=== PATIENT | male | born 1965 | race Caucasian/White ===

== ENCOUNTER → 2017-02-01 01:50 | Emergency (ER) | payer OTHER | END | disposition left against medical advice (07) | LOC: CED 01:50 | DX: Z53.21 Procedure and treatment not carried out due to patient leaving prior to being seen by health care provider (principal) ==

== ENCOUNTER → 2017-02-02 | Outpatient (CLI) | payer OTHER ==
--- NOTE | ~2017-02-02 | US5 ---
[facility] A Service of [facility] & [facility] RADIOLOGY TEXT RESULTS PATIENT: RAMÍREZ ARITA LOCATION: [facility] : 69 UNIT #: [id number] AGE: [address]: CANDE JEFFERSON APRN SEX: M ORDER DR: [id number] [facility] [address] [place], [place] [address] [id number] O MR#: [id number] Acc #: [id number] NAME: RAMÍREZ ARITA : 1965 SEX: M STUDY DATE/TIME: 02/02/2017 9:33 UNIT: [facility] ROOM: STUDY DESCRIPTION: US Abdominal Complete Attending Physician: Cande Jefferson Np Referring Physician: Cande Jefferson Np Ordering Physician: Cande Jefferson Np Primary Care Physician: Cande Jefferson Np MEDICAL IMAGING REPORT This report is preliminary unless electronic signature is present EXAM Abdominal ultrasound complete 02/02/2017. HISTORY Abdominal pain for 2 years and discomfort. No known injury. FINDINGS The liver is homogeneous in echotexture and demonstrates no cystic or solid mass lesions. The intra and extrahepatic bile ducts are not dilated. The gallbladder is normal with no evidence of cholelithiasis, wall thickening or pericholecystic fluid. The common duct measures 2 mm. The pancreas and spleen are normal. The spleen measures 7.3 cm in greatest diameter. The visualized portions of the abdominal aorta and inferior vena cava are within normal limits. The kidneys are normal bilaterally. IMPRESSION Negative abdominal ultrasound. Dictated by... Chato Yeager M.D. THIS IS AN ELECTRONICALLY VERIFIED REPORT Chato Yeager M.D. at 02/03/2017 8:29 AM KRT/bhavani TD: 02/02/2017 14:13 JOB #: [id number] MEDICAL IMAGING REPORT Page 1 of 1 COPY
== END | disposition home or self-care (01) ==
LOC: CGUS 07:53
DX: R10.9 Unspecified abdominal pain (principal); R89.9 Unspecified abnormal finding in specimens from other organs, systems and tissues; R63.4 Abnormal weight loss
CPT/HCPCS: 76700

== ENCOUNTER → 2017-03-17 | Outpatient (CLI) | payer OTHER ==
--- NOTE | ~2017-03-17 | CT2 ---
[facility] A Service of [facility] & [facility] RADIOLOGY TEXT RESULTS PATIENT: RAMÍREZ ARITA [facility] : 69 UNIT #: [id number] AGE: [address]: Margaret Nassar MD SEX: M ORDER DR: [id number] [id number] [facility]. [place], [place] [address] [id number] O MR#: [id number] Acc #: [id number] NAME: RAMÍREZ ARITA : 1965 SEX: M STUDY DATE/TIME: 03/17/2017 13:01 UNIT: [facility] ROOM: STUDY DESCRIPTION: CT Abd and Pelv W Cont Attending Physician: Margaret Nassar M.D., Ph.D. Referring Physician: Margaret Nassar M.D., Ph.D. Ordering Physician: Margaret Nassar M.D., Ph.D. Primary Care Physician: Cande Jefferson Np MEDICAL IMAGING REPORT This report is preliminary unless electronic signature is present EXAM CT abdomen and pelvis with contrast. DATE 03/17/2017 HISTORY 51-year-old male with elevated white blood cell count. Patient states left side abdominal pain for 1 year, weight loss of 26 pounds in 6 months, cough for 1 year. COMPARISON Complete abdominal ultrasound, 02/12/2017. CT chest with contrast 03/17/2017. PROCEDURE 5 mm axial images from the lung bases through lesser trochanters after intravenous contrast administration. Enteric contrast was not administered. TECHNIQUE This CT exam was performed with one or more of the following radiation dose reduction techniques: automatic exposure control, adjustment of mA and/or kV according to patient size, and iterative reconstruction. FINDINGS ABDOMEN FINDINGS: Consolidative changes are present within the posterior left lower lobe. The liver, gallbladder, spleen, pancreas, adrenals and left kidney are within normal limits. There is a probable tiny cyst in the anterior right mid to upper renal pole measuring about 7 mm. No pathologically enlarged lymph nodes are identified. No free air or free fluid is evident. Unopacified bowel appears grossly unremarkable. The appendix is not discretely visualized, but no pericecal inflammation is STS. [facility] A Service of [facility] & [facility] RADIOLOGY TEXT RESULTS PATIENT: RAMÍREZ ARITA LOCATION: [facility] : 69 UNIT #: [id number] AGE: [address]: Margaret Nassar MD SEX: M ORDER DR: seen. There is mild atherosclerotic plaquing within the abdominal aorta, without aneurysm. PELVIS FINDINGS: Urinary bladder, prostate and rectum are normal. No pelvic adenopathy or free fluid is seen. 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 No acute or suspicious osseous abnormalities are identified. IMPRESSION 1. No acute findings within the abdomen or pelvis. 2. CT chest performed on this same date has been dictated separately. Dictated by... Heather Dunaway M.D. THIS IS AN ELECTRONICALLY VERIFIED REPORT Heather Dunaway M.D. at 03/19/2017 7:14 AM MARTHA/abraham TD: 03/17/2017 15:32 JOB #: [id number] MEDICAL IMAGING REPORT Page 1 of 1 COPY
--- NOTE | ~2017-03-17 | CT55 ---
[facility] A Service of [facility] & [facility] RADIOLOGY TEXT RESULTS PATIENT: RAMÍREZ ARITA LOCATION: [facility] : 69 UNIT #: [id number] AGE: [address]: Margaret Nassar MD SEX: M ORDER DR: [id number] [facility] [address] [place], [place] [address] [id number] O MR#: [id number] Acc #: [id number] NAME: RAMÍREZ ARITA : 1965 SEX: M STUDY DATE/TIME: 03/17/2017 13:45 UNIT: [facility] ROOM: STUDY DESCRIPTION: CT Chest W Con Attending Physician: Margaret Nassar M.D., Ph.D. Referring Physician: Margaret Nassar M.D., Ph.D. Ordering Physician: Margaret Nassar M.D., Ph.D. Primary Care Physician: Cande Jefferson Np MEDICAL IMAGING REPORT This report is preliminary unless electronic signature is present EXAM CT chest with contrast, 03/17/2017 HISTORY 51-year-old male left-sided abdominal pain for 1 year, weight loss of 26 pounds in 6 months, cough for 1 year. COMPARISON PA and lateral chest radiograph 02/09/2012. No prior CT chest at this institution for comparison. PROCEDURE 5.0 mm axial images from the thoracic inlet through the upper abdomen after IV contrast administration. Sagittal and coronal reformatted images were obtained. This CT exam was performed with one or more of the following radiation dose reduction techniques: automatic exposure control, adjustment of mA and/or kV according to patient size, and iterative reconstruction. FINDINGS There is opacification and obstruction of the left lower lobe bronchus. Abnormal soft tissue thickening in the same vicinity measures approximately 2.8 x 2.1 cm. There is dense consolidative type change within the left lower lobe more distally. Tree-in-bud nodular densities are present within the left lower lobe superiorly. Mildly prominent lymph nodes within the AP window are present measuring about 1.0 cm thickness. Subcarinal lymph node measures 1.3 cm thickness. Right mid paratracheal node measures 8.0 mm thickness. No axillary or supraclavicular adenopathy is seen. The left upper lobe and right lung are clear. [facility] A Service of [facility] RADIOLOGY TEXT RESULTS PATIENT: RAMÍREZ ARITA LOCATION: [facility] : 69 UNIT #: [id number] AGE: [address]: Margaret Nassar MD SEX: M ORDER DR: No pericardial effusion or pleural effusion is seen. No suspicious osteolytic or osteoblastic abnormalities are identified. 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 IMPRESSION 1. Findings suspicious for endobronchial malignancy involving the left lower lobe bronchus. Postobstructive pneumonia type changes within the left lower lobe. Bronchoscopic evaluation recommended. Findings were called to Tamera, the clinical trials assistant working with Dr. Nassar, at the time of this dictation, 03/17/2017 at 03:19 p.m. 2. Mildly prominent left hilar and mediastinal lymph nodes as described in the report. Malignant adenopathy not excluded. PET/CT may prove helpful for further evaluation. 3. CT abdomen and pelvis performed on this same day has been dictated separately. Dictated by... Heather Dunaway M.D. THIS IS AN ELECTRONICALLY VERIFIED REPORT Heather Dunaway M.D. at 03/19/2017 7:14 AM Patric TD: 03/17/2017 15:32 JOB #: [id number] MEDICAL IMAGING REPORT Page 1 of 1 COPY
== END | disposition home or self-care (01) ==
LOC: CCAT 12:48
DX: D72.829 Elevated white blood cell count, unspecified (principal)
CPT/HCPCS: 71260; 74177; Q9967

== ENCOUNTER → 2017-04-08 | Outpatient (CLI) | payer OTHER ==
--- NOTE | ~2017-04-08 | MR17 ---
[facility] A Service of [facility] RADIOLOGY TEXT RESULTS PATIENT: RAMÍREZ ARITA LOCATION: [facility] : 69 UNIT #: [id number] AGE: [address]: Margaret Nassar MD SEX: M ORDER DR: [id number] [facility] [address] [place], [place] [address] [id number] O MR#: [id number] Acc #: [id number] NAME: RAMÍREZ ARITA : 1965 SEX: M STUDY DATE/TIME: 04/08/2017 7:53 UNIT: [facility] ROOM: STUDY DESCRIPTION: MR Brain WWo Contrast Attending Physician: Margaret Nassar M.D., Ph.D. Referring Physician: Margaret Nassar M.D., Ph.D. Ordering Physician: Margaret Nassar M.D., Ph.D. Primary Care Physician: Cande Jefferson Np MRI CENTER REPORT This report is preliminary unless electronic signature is present. EXAM MRI brain with and without. HISTORY Lung cancer. Recently diagnosed with lung cancer last week, per patient. Observe for suspected intracranial metastatic disease. COMMENT MRI of the brain was performed prior to and following intravenous administration of 10 mL of MultiHance. There is no prior. There is no abnormally restricted diffusion. There is no Chiari-I malformation. Midline structures are unremarkable. There is no MRI evidence for intracranial hemorrhage. The distal right vertebral artery is hypoplastic. Otherwise, the major intracranial flow voids are maintained. There is no extraaxial fluid collection. The basilar cisterns are patent. There is only minor periventricular white matter signal abnormality within the range expected for age group and probably due to small vessel disease. Following contrast administration, there is no pathologic intracranial enhancement. There is no intracranial mass lesion or mass effect. There is nothing to suggest intracranial metastatic disease. IMPRESSION 1. No evidence for intracranial metastatic disease. 2. Minimal mucosal disease likely in the sphenoid sinus. Dictated by... Esperanza Karimi M.D. [facility] A Service of [facility] RADIOLOGY TEXT RESULTS PATIENT: RAMÍREZ ARITA LOCATION: [facility] : 69 UNIT #: [id number] AGE: [address]: Margaret Nassar MD SEX: M ORDER DR: THIS IS AN ELECTRONICALLY VERIFIED REPORT Esperanza Karimi M.D. at 04/08/2017 4:31 PM Celeste TD: 04/08/2017 12:53 JOB #: [id number] MRI CENTER REPORT Page 1 of 1 COPY
--- NOTE | ~2017-04-08 | PFT ---
[id number] [facility]. [place], [place] [address] [id number] O MR#: [id number] NAME: RAMÍREZ ARITA ROOM: SEX: M STUDY DATE/TIME: 04/15/2017 : 1965 AGE: 51 STUDY DESCRIPTION: Attending Physician: Margaret Nassar M.D., Ph.D. Referring Physician: Margaret Nassar M.D., Ph.D. Primary Care Physician: Cande Jefferson Np PULMONARY DIAGNOSTIC REPORT EXAM Pulmonary function test. FINDINGS Spirometry is consistent with a mild obstructive defect. There is borderline response to bronchodilators of 10%, yielding an FEV1 of 2.45 liters, 73% of predicted. Flow volume loops consistent with an obstructive defect. Lung volumes reveal air trapping. Diffusion capacity is normal. Dictated by... Burke Fontaine M.D. MACRINA/yola TD: 04/15/2017 09:52 JOB #: [id number] PULMONARY DIAGNOSTIC REPORT Page 1 of 1
== END | disposition home or self-care (01) ==
LOC: CMRI 07:17
DX: C34.32 Malignant neoplasm of lower lobe, left bronchus or lung (principal); D72.829 Elevated white blood cell count, unspecified
CPT/HCPCS: 70553; 94060; 94726; 94729; A9577

== ENCOUNTER → 2017-04-23 | Outpatient (CLI) | payer OTHER ==
[2017-04-23 11:45] LABS: ARTERIAL BLD GAS O2 SATURATION 92.6 % (90.0-100.0); ARTERIAL BLOOD GAS CARBOXY HB 3.9 %sat (0.0-9.0); ARTERIAL BLOOD GAS HCO3 23.7 mmol/L; ARTERIAL BLOOD GAS MET HB 0.5 %sat (0.0-2.0); ARTERIAL BLOOD GAS PCO2 36.3 mmHg (35.0-45.0); ARTERIAL BLOOD GAS pH 7.423 (7.350-7.450)
[2017-04-23 11:46] LABS: ARTERIAL BLOOD GAS ART SITE RIGHT BRACHIAL; ARTERIAL DRAW? YES
== END | disposition home or self-care (01) ==
LOC: CRC 11:28
PROVIDERS: Surgery
DX: C34.90 Malignant neoplasm of unspecified part of unspecified bronchus or lung (principal)
CPT/HCPCS: 36600; 82803

== ENCOUNTER → 2017-04-30 | Outpatient (CLI) | payer OTHER ==
--- NOTE | ~2017-04-30 | NM66 ---
[facility] A Service of [facility] RADIOLOGY TEXT RESULTS PATIENT: RAMÍREZ ARITA LOCATION: [facility] : 69 UNIT #: [id number] AGE: [address]: Hudson Gonsalves MD SEX: M ORDER DR: [id number] [facility] [address] [place], [place] [address] [id number] O MR#: [id number] Acc #: [id number] NAME: RAMÍREZ ARITA : 1965 SEX: M STUDY DATE/TIME: 04/30/2017 10:48 UNIT: [facility] ROOM: STUDY DESCRIPTION: NM Pulm Quant Perf and Image Attending Physician: Hudson Gonsalves M.D. Referring Physician: Hudson Gonsalves M.D. Ordering Physician: Hudson Gonsalves M.D. Primary Care Physician: Cande Jefferson Np MEDICAL IMAGING REPORT This report is preliminary unless electronic signature is present EXAM Quantitative perfusion scan, 04/30. INDICATION Lung cancer. Preoperative exam for resection. FINDINGS Images were obtained of the lungs after the IV administration of 6.0 mCi of technetium 99m-MAA. Comparison made with a chest x-ray from 04/30/2017. Total perfusion to the right lung is 73.0%. Total perfusion to the left lung is 27.0%. This breaks down as follows: Left upper lung 6.4%, left middle lung 14.5%, left lower lung 6.2%, right upper lung 15.9%, right middle lung 28.4%, and right lower lung 28.7%. IMPRESSION Split perfusion is 73% right lung and 27% left lung. Breakdown as above. Dictated by... Brad Palmer Jr., M.D. THIS IS AN ELECTRONICALLY VERIFIED REPORT Brad Palmer Jr., M.D. at 05/03/2017 3:48 PM YARITZA/syed TD: 05/03/2017 14:25 JOB #: [id number] MEDICAL IMAGING REPORT Page 1 of 1 COPY
--- NOTE | ~2017-04-30 | CR63 ---
[facility] A Service of [facility] & [facility] RADIOLOGY TEXT RESULTS PATIENT: RAMÍREZ ARITA LOCATION: [facility] : 69 UNIT #: [id number] AGE: [address]: Hudson Gonsalves MD SEX: M ORDER DR: [id number] [facility] [address] [place], [place] [address] [id number] O MR#: [id number] Acc #: [id number] NAME: RAMÍREZ ARITA : 1965 SEX: M STUDY DATE/TIME: 04/30/2017 10:18 UNIT: [facility] ROOM: STUDY DESCRIPTION: CR Chest 2 View Attending Physician: Hudson Gonsalves M.D. Referring Physician: Hudson Gonsalves M.D. Ordering Physician: Hudson Gonsalves M.D. Primary Care Physician: Cande Jefferson Np MEDICAL IMAGING REPORT This report is preliminary unless electronic signature is present EXAM PA and lateral chest. INDICATIONS Having left lung surgery. Shortness of breath for 1 year. Scans performed in conjunction with ventilation-perfusion study. COMPARISON 02/09/2012, and also with chest CT from 03/17/2017. FINDINGS There is stable left lower lobe atelectasis/consolidation. Heart size normal. Visualized osseous structures are unremarkable. IMPRESSION Stable left lower lobe atelectasis/consolidation. Dictated by... Seamus Yan M.D. THIS IS AN ELECTRONICALLY VERIFIED REPORT Seamus Yan M.D. at 05/05/2017 1:32 PM CHUN/abraham TD: 05/01/2017 03:10 JOB #: [id number] MEDICAL IMAGING REPORT Page 1 of 1 COPY
== END | disposition home or self-care (01) ==
LOC: CNUC 10:05
DX: C34.90 Malignant neoplasm of unspecified part of unspecified bronchus or lung (principal); R91.8 Other nonspecific abnormal finding of lung field
CPT/HCPCS: 71020; 78597; A9540

== ENCOUNTER → 2017-05-07 | Outpatient (CLI) | payer OTHER ==
--- NOTE | ~2017-05-07 | ST ---
Unit #: [id number] #: [id number] Patient: RAMÍREZ ARITA [id number] [facility]. [address] [facility]. [place], [place] [address] [id number] O MR#: [id number] NAME: RAMÍREZ ARITA. : 1965 SEX: M STUDY DATE/TIME: 05/07/2017 UNIT: [facility] ROOM: STUDY DESCRIPTION: Cardiac stress test. Attending Physician: Betito David M.D. Referring Physician: Betito aDvid M.D. Primary Care Physician: Cande Jefferson Np CARDIOLOGY REPORT EXAM Cardiac stress test. REASON FOR STUDY Preoperative clearance for lung resection. PROCEDURE Baseline EKG is sinus bradycardia with a ventricular rate of 50, with T wave inversions in V1 and AVL. The patient exercised on a treadmill according to the modified Cholo protocol for 8 minutes 23 seconds, achieving a work level of 7.8 METS. Resting heart rate was 50. Maximal heart rate was 153 beats per minute, representing 89% of the maximal age-predicted heart rate. The patient's symptoms were shortness of air and fatigue. Arrhythmias noted were a rare PVC. The test was stopped due to achieving maximal heart rate. IMPRESSION 1. EKG during the test was equivocal to baseline. 2. No acute ischemic changes. 3. The patient did experience shortness of breath with severe dyspnea. Protocol was modified. 4. There was an occasional PVC noted. 5. Please correlate with Cardiolite imaging. Dictated by... Marie Morin APRN for Giovani Rico TD: 05/07/2017 08:21 JOB #: [id number] Unit #: [id number] #: [id number] Patient: RAMÍREZ ARITA CARDIOLOGY REPORT Page 1 of 1 X CARDIOLOGY REPORT
--- NOTE | ~2017-05-07 | TH ---
Unit #: [id number] #: [id number] Patient: RAMÍREZ ARITA [id number] [address] [id number] O MR#: [id number] NAME: RAMÍREZ ARITA. : 1965 SEX: M STUDY DATE/TIME: UNIT: [facility] ROOM: STUDY DESCRIPTION: Nuclear Study Attending Physician: Betito David M.D. Referring Physician: Betito David M.D. Primary Care Physician: Cande Jefferson Np CARDIOLOGY REPORT EXAM Exercise Cardiolite Stress Test - Nuclear Portion PROCEDURE Using technetium 99m labeled Cardiolite, rest and stress SPECT images were obtained. Multiple SPECT images were obtained in various views including horizontal and vertical long axis and short axis views of the left ventricle. Images were obtained by gated SPECT method. The patient was administered 11.70 mCi of Cardiolite at rest. The patient was administered 33.4 mCi of Cardiolite at peak exercise. Total exercise time is 8 minutes 23 seconds. On the stress images, there is normal perfusion noted. The rest images show normal perfusion. Comparing rest and stress images, there is no stress-induced ischemia noted. The left ventricular ejection fraction is calculated to be 63%. There is no focal wall motion abnormality seen. CONCLUSION 1. No stress-induced ischemia noted. 2. The left ventricular ejection fraction is calculated to be 63%. 3. There is no focal wall motion abnormality seen. 4. Normal exercise Cardiolite stress test. Dictated by... Giovani Rico TD: 05/08/2017 08:30 JOB #: [id number] Unit #: [id number] #: [id number] Patient: RAMÍREZ ARITA CARDIOLOGY REPORT Page 1 of 1 X Maida Waters MD <ELECTRONICALLY SIGNED> 05/22/17 1429 CARDIOLOGY REPORT
== END | disposition home or self-care (01) ==
LOC: CNUC 06:12
DX: Z01.818 Encounter for other preprocedural examination (principal); R94.31 Abnormal electrocardiogram [ECG] [EKG]; R07.89 Other chest pain
CPT/HCPCS: 78452; 93017; A9500